=== PATIENT | male | born 1970 | race Hispanic/Latino ===

== ENCOUNTER 2018-09-27 09:53 | Outpatient (CLI) | payer OTHER ==
--- NOTE | 2018-09-27 10:51 | XRay Report ---
Lumbar spine 3 views: History: Pain, recent exam. Findings Normal height of vertebral bodies with decrease in height of L1 through interspaces and L5-S1 interspace. Sclerotic adjacent articular surfaces and peripheral osteophyte suggesting degenerative changes. No fracture. No soft tissue calcification. Incidentally noted left iliac vascular stent. Impression: Degenerative changes lumbar spine being most pronounced at the lumbosacral interspace.
== END 2018-09-27 09:54 | disposition home or self-care (01) ==
LOC: XRAY 09:53
PROVIDERS: ATTEND Internal Medicine
DX: Z02.71 Encounter for disability determination (principal); M47.817 Spondylosis without myelopathy or radiculopathy, lumbosacral region
CPT/HCPCS: 72100

== ENCOUNTER 2020-11-13 17:49 | Emergency (ER) | payer MEDICAID, OTHER ==
--- NOTE | 2020-11-13 20:12 | XRay Report ---
XR shoulder 2+V LT INDICATION: shoulder pain. COMPARISON: No relevant prior imaging study available. FINDINGS: No acute skeletal abnormality. No significant soft tissue abnormality. IMPRESSION: 1. No acute findings. Signer Name: Parish Breaux MD Signed: 11/13/2020 8:07 PM Workstation Name: [id number]
[2020-11-14] MEDS ORDERED: SODIUM CHLORIDE 0.9% 1000 ML 1,000 ML ONE (02:34)
[2020-11-14] MEDS ORDERED: MORPHINE 2 MG/1 ML INJ ONE (02:34)
[2020-11-14] MEDS ORDERED: ACETAMINOPHEN 325 MG TAB ONE (02:35)
[2020-11-14] MEDS ORDERED: MORPHINE 4 MG/1 ML INJ IV ONE (02:55)
[2020-11-14] MEDS ORDERED: SODIUM CHLORIDE 0.9% 1000 ML 1,000 ML IV ONE (02:55)
[2020-11-14] MEDS ORDERED: amLODIPine 5 MG TAB PO ONE (02:56)
[2020-11-14] MEDS ORDERED: ACETAMINOPHEN 325 MG TAB PO ONE ×2 (02:56→05:00)
--- NOTE | 2020-11-14 03:00 | Emergency Department Report ---
ED General Adult HPI - General Chief complaint: Wound/Laceration Stated complaint: LEFT FOOT BIG TOE STUMP PUI?: No Time Seen by Provider: 11/14/20 02:54 Source: patient, EMS ( EMS documentation not available at time of chart dictation ), RN notes reviewed Mode of arrival: Stretcher Limitations: Physical Limitation - History of Present Illness Initial comments: The patient is a 50-year-old gentleman. He is not known to myself previously. He has a history of hypertension, diabetes, umbilical hernia repair, and history of left great toe amputation. The patient presents to the ER today with 3 complaints. His first complaint is nontraumatic left-sided shoulder pain, present for 2 years. The pain is throbbing, increases with palpation and range of motion, and decreases with rest. It does not radiate anywhere. He has followed up with [facility] in the past for this. He does not feel like he is received satisfactory care for his left shoulder pain in the past 2 years. His pain is not new, worsened or different today. His next complaint is a left-sided medial foot wound, present for about a year and a half, which is not painful, and which is not acutely worsened or different today. The patient does not have a loan specialist at this time. His final complaint is abdominal pain, and "it feels like there is a ball in my stomach." He describes a few months of supraumbilical firmness, and pain. He did fall recently. He has not really taken anything [id number] for his pain. He denies headache, neck pain, chest pain, vomiting, diaphoresis, loss of taste and smell, and urinary symptoms. Left shoulder pain increases with palpation and range of motion. Decreases with rest. Abdominal pain increases with palpation. It decreases with rest. It does not radiate anywhere. -: Gradual, week(s), month(s), year(s) Location: abdomen, left (Left shoulder), lower extremity (Left foot) Radiation: non-radiation Quality: other Consistency: other Improves with: other Worsens with: other - Related Data Previous Rx's Medication Instructions Recorded Last Taken Type Acetaminophen [Non-Aspirin Extra 500 mg PO Q6HR PRN #30 tablet 11/14/20 Unknown Rx Strength] Amlodipine Besylate [Norvasc] 5 mg PO QDAY #30 tablet 11/14/20 Unknown Rx Ibuprofen [Motrin] 400 mg PO Q8H PRN #30 tablet 11/14/20 Unknown Rx Allergies Allergy/AdvReac Type Severity Reaction Status Date / Time No Known Allergies Allergy Verified 11/14/20 03:37 ED Review of Systems ROS: Stated complaint: LEFT FOOT BIG TOE STUMP Other details as noted in HPI Constitutional: denies: fever Eyes: denies: eye discharge ENT: denies: epistaxis Respiratory: denies: cough Cardiovascular: denies: chest pain Gastrointestinal: abdominal pain Genitourinary: denies: dysuria Musculoskeletal: arthralgia, myalgia Skin: lesions, other (Chronic discoloration) Neurological: denies: weakness Hematological/Lymphatic: denies: easy bleeding ED Past Medical Hx - Past Medical History Hx Hypertension: Yes Hx Heart Attack/AMI: Yes Hx Diabetes: Yes - Surgical History Additional Surgical History: umbilical repair x4, L toe amputation - Social History Smoking Status: Current Every Day Smoker - Medications Home Medications: Home Medications Medication Instructions Recorded Confirmed Last Taken Type Acetaminophen [Non-Aspirin Extra 500 mg PO Q6HR PRN #30 tablet 11/14/20 Unknown Rx Strength] Amlodipine Besylate [Norvasc] 5 mg PO QDAY #30 tablet 11/14/20 Unknown Rx Ibuprofen [Motrin] 400 mg PO Q8H PRN #30 tablet 11/14/20 Unknown Rx ED Physical Exam - General Limitations: No Limitations General appearance: alert, in no apparent distress, obese - Head Head exam: Present: atraumatic, normocephalic - Eye Eye exam: Present: normal appearance, EOMI. Absent: nystagmus - ENT ENT exam: Present: normal exam, normal orophraynx, mucous membranes moist, normal external ear exam - Neck Neck exam: Present: normal inspection, full ROM. Absent: tenderness, meningismus - Respiratory Respiratory exam: Present: normal lung sounds bilaterally. Absent: respiratory distress, wheezes, rales, rhonchi, stridor, decreased breath sounds - Cardiovascular Cardiovascular Exam: Present: normal rhythm, tachycardia, normal heart sounds. Absent: systolic murmur, diastolic murmur, rubs, gallop - GI/Abdominal GI/Abdominal exam: Present: soft, tenderness (There is induration in the supraumbilical mid abdominal region, without redness, pus, streaking.). Absent: distended, guarding, rebound, rigid, pulsatile mass - Rectal Rectal exam: Present: deferred - Extremities Exam Extremities exam: Present: full ROM (There is full range of motion in the bilateral upper and lower extremities. There is no redness, pus, streaking, warmth or tenderness on the upper extremities.), tenderness (The left shoulder joint is tender, with intact active and passive range of motion), other (2+ pul ses noted in the bilateral upper and lower extremities. There is no palpable cord. negative Homans sign. Muscular compartments are soft. The pelvis is stable.). Absent: normal inspection (Hyperpigmentation noted to the dorsal aspect of the bilateral feet. There is brown nontender nonnecrotic appearing tissue on the medial aspect of the left foot. There is no pus, streaking or tenderness in the bilateral lower extremities.), calf tenderness - Back Exam Back exam: Present: normal inspection. Absent: tenderness, CVA tenderness (R), CVA tenderness (L), paraspinal tenderness, vertebral tenderness - Neurological Exam Neurological exam: Present: alert, oriented X3, other (No facial droop. Tongue midline. Extraocular movements intact bilaterally. Facial sensation intact to light touch in V1, V2, V3 distribution bilaterally. 5 and a 5 strength in 4 extremities. Sensation intact to light touch in 4 extremities.). Absent: motor sensory deficit - Psychiatric Psychiatric exam: Present: normal affect, normal mood - Skin Skin exam: Present: warm. Absent: urticaria, vesicles, petechiae, pallor, abrasion, ecchymosis ED Course Vital Signs 11/13/20 11/14/20 11/14/20 19:32 03:00 03:01 Temperature 98.0 F 98.2 F Pulse Rate 112 H 91 H 97 H Respiratory 18 18 20 Rate Blood Pressure 175/91 146/91 Blood Pressure 146/91 [Left] O2 Sat by Pulse 97 99 Oximetry 11/14/20 11/14/20 11/14/20 03:05 03:10 03:15 Temperature Pulse Rate 100 H Respiratory 18 18 18 Rate Blood Pressure 160/84 Blood Pressure [Left] O2 Sat by Pulse Oximetry 11/14/20 11/14/20 11/14/20 03:31 03:40 03:45 Temperature Pulse Rate 100 H 98 H Respiratory 18 18 15 Rate Blood Pressure 146/91 124/77 Blood Pressure [Left] O2 Sat by Pulse 95 Oximetry 11/14/20 11/14/20 11/14/20 04:01 04:05 04:45 Temperature Pulse Rate 92 H 98 H Respiratory 15 18 15 Rate Blood Pressure 132/85 Blood Pressure [Left] O2 Sat by Pulse 97 98 Oximetry 11/14/20 06:50 Temperature Pulse Rate 90 Respiratory 18 Rate Blood Pressure Blood Pressure 133/65 [Left] O2 Sat by Pulse 98 Oximetry - Reevaluation(s) Reevaluation #1: 11/14/20 03:01 Differential diagnosis, including but not limited to: Chronic left foot wound, left shoulder arthritis, ligamentous injury, abdominal wall hernia, abdominal wall hematoma, intra-abdominal injury Assessment and plan: 50-year-old gentleman, who is initially sleeping comfortably on the stretcher on my examination, with multiple complaints. Complaint #1, left-sided shoulder pain, present for 2 years. Has appropriate range of motion in the left upper extremity, is neurovascularly intact, without redness, pus, streaking, warmth or tenderness, x-ray shows no fracture or dislo cation, examination and history not suggestive of fracture, dislocation, compartment syndrome, or emergent condition. Rest, ice, compression, elevation, outpatient primary care or orthopedics follow-up. Complaint #2, left foot wound. This is chronic for about a year and a half, does not appear to be superinfected, is not acutely decompensated. Local wound care, outpatient wound care follow-up. Place case management consultation to assist the patient with outpatient wound care and psychiatric social worker. Follow-up with outpatient wound clinic. Complaint #3, abdominal pain. Suspect rectus muscle hernia. Treat pain, obtain CT scan abdomen pelvis, and reassess. Have discussed this plan of care with the patient. He is amenable. 11/14/20 05:01 Patient resting comfortably and in no acute distress. He is sleeping on my repeat evaluation. He states he feels improved. I discussed significance of his findings with him. He states he is aware of his pulmonary nodule. He is also wearing an abdominal wall binder. He feels comfortable with plan of discharge. Laboratory studies reviewed and appreciated. Leukocytosis likely stress reaction and/or hemoconcentration. Hemoglobin, hematocrit also suggestive of hemoconcentration. Comprehensive metabolic panel unremarkable with the exceptio n of hyperglycemia. IV fluids and insulin ordered. There is no right upper quadrant pain or tenderness. Patient feels improved after morphine. CT scan abdomen pelvis shows no acute findings. Suitable to follow-up with an outpatient primary care doctor for multiple chronic findings. 11/14/20 05:07 11/14/20 05:08 ED Medical Decision Making - Lab Data Result diagrams: 11/14/20 02:25 Vital Signs 11/13/20 19:32 Temperature 98.0 F Pulse Rate 112 H Respiratory 18 Rate Blood Pressure 175/91 O2 Sat by Pulse 97 Oximetry Vital Signs 11/13/20 11/14/20 11/14/20 19:32 03:00 03:01 Temperature 98.0 F 98.2 F Pulse Rate 112 H 91 H 97 H Respiratory 18 18 20 Rate Blood Pressure 175/91 146/91 Blood Pressure 146/91 [Left] O2 Sat by Pulse 97 99 Oximetry 11/14/20 11/14/20 11/14/20 03:05 03:10 03:15 Temperature Pulse Rate 100 H Respiratory 18 18 18 Rate Blood Pressure 160/84 Blood Pressure [Left] O2 Sat by Pulse Oximetry 11/14/20 11/14/20 11/14/20 03:31 03:45 04:01 Temperature Pulse Rate 100 H 98 H 92 H Respiratory 18 15 15 Rate Blood Pressure 146/91 124/77 132/85 Blood Pressure [Left] O2 Sat by Pulse 95 97 Oximetry 11/14/20 04:45 Temperature Pulse Rate 98 H Respiratory 15 Rate Blood Pressure Blood Pressure [Left] O2 Sat by Pulse 98 Oximetry White blood cell counts, 15.6/17.5, hematocrit 51, platelet count 375 Sodium 136, potassium 4.6, chloride 96.4, CO2 30, anion gap 14, BUN 7, creatinine 0.7, glucose 374, magnesium 1.9, CK 22 Vital Signs 11/13/20 11/14/20 11/14/20 19:32 03:00 03:01 Temperature 98.0 F 98.2 F Pulse Rate 112 H 91 H 97 H Respiratory 18 18 20 Rate Blood Pressure 175/91 146/91 Blood Pressure 146/91 [Left] O2 Sat by Pulse 97 99 Oximetry 11/14/20 11/14/20 11/14/20 03:05 03:10 03:15 Temperature Pulse Rate 100 H Respiratory 18 18 18 Rate Blood Pressure 160/84 Blood Pressure [Left] O2 Sat by Pulse Oximetry 11/14/20 11/14/20 11/14/20 03:31 03:40 03:45 Temperature Pulse Rate 100 H 98 H Respiratory 18 18 15 Rate Blood Pressure 146/91 124/77 Blood Pressure [Left] O2 Sat by Pulse 95 Oximetry 11/14/20 11/14/20 11/14/20 04:01 04:05 04:45 Temperature Pulse Rate 92 H 98 H Respiratory 15 18 15 Rate Blood Pressure 132/85 Blood Pressure [Left] O2 Sat by Pulse 97 98 Oximetry 11/14/20 06:50 Temperature Pulse Rate 90 Respiratory 18 Rate Blood Pressure Blood Pressure 133/65 [Left] O2 Sat by Pulse 98 Oximetry Lab Results 11/14/20 11/14/20 Range/Units 02:25 06:35 WBC 15.6 H (4.5-11.0) K/mm3 RBC 5.77 H (3.65-5.03) M/mm3 Hgb 17.5 H (11.8-15.2) gm/dl Hct 51.1 H (35.5-45.6) % MCV 89 (84-94) fl MCH 30 (28-32) pg MCHC 34 (32-34) % RDW 14.3 (13.2-15.2) % Plt Count 375 (140-440) K/mm3 POC Glucose 202 H (70-105) mg/dL - Radiology Data Radiology results: pending, report reviewed, image reviewed [facility] [address] [place] [address] X Ray Report Signed Patient: TAVO VERA MR#: [id number] : 1970 Acct:[id number] Age/Sex: 50 / M ADM Date: 11/13/20 Loc: ED Attending Dr: Ordering Physician: ED MD LEE Date of Service: 11/13/20 Procedure(s): XR shoulder 2+V LT Accession Number(s): [id number] cc: ED MD LEE Fluoro Time In Minutes: XR shoulder 2+V LT INDICATION: shoulder pain. COMPARISON: No relevant prior imaging study available. FINDINGS: No acute skeletal abnormality. No significant soft tissue abnormality. IMPRESSION: 1. No acute findings. Signer Name: Parish Breaux MD Signed: 11/13/2020 8:07 PM Workstation Name: [id number] Transcribed By: MARLIN Dictated By: Parish Breaux MD Electronically Authenticated By: Parish Breaux MD Signed Date/Time: 11/13/202006 DD/ 06 [facility] [address] [place] [address] Cat Scan Report Signed Patient: TAVO VERA MR#: [id number] : 1970 Acct:[id number] Age/Sex: 50 / M ADM Date: 11/13/20 Loc: ED Attending Dr: Ordering Physician: DANN RIVERA MD Date of Service: 11/14/20 Procedure(s): CT abdomen pelvis w con Accession Number(s): [id number] cc: DANN RIVERA MD CT ABDOMEN AND PELVIS WITH CONTRAST HISTORY: Patient complains of umbilcal abdominal pain / Hematoma. COMPARISON: None. TECHNIQUE: CT images of the abdomen and pelvis were obtained following administration of intravenous contrast. All CT scans at this location are performed using CT dose reduction for ALARA by means of automated exposure control. CONTRAST: 100 ml of intravenous contrast administered. FINDINGS: Lungs/bones: nodule in the right lower lung Abdomen/pelvis: Diffuse fatty infiltration liver. Liver is enlarged. The gallbladder is distended. Spleen, adrenal glands and pancreas appear normal. Extensive atherosclerotic change of aorta and branches. Postsurgical change from prior umbilical appear. Small hernia persists. Bowel loops extending into this region however no definite involvement. No bowel obstruction. IMPRESSION: 1. Right lower lung pulmonary nodule. A PET/CT examination may be helpful for further evaluation. 2. Postoperative change from prior repair. Umbilical hernia persists containing a small amount of fat and mesh material. 3. Gallbladder is distended. No pericholecystic fluid. 4. Fatty infiltration of the liver. Signer Name: Sekou Gtz MD Signed: 11/14/2020 4:43 AM Workstation Name: [id number] Transcribed By: CW Dictated By: ZOFIA GTZ MD Electronically Authenticated By: ZOFIA GTZ MD Signed Date/Time: 11/14/20442 DD/ 0 Critical care attestation.: If time is entered above; I have spent that time in minutes in the direct care of this critically ill patient, excluding procedure time. ED Disposition Clinical Impression: Hypertension, Left shoulder pain, Abdominal pain, Wound of left foot, Hyperglycemia, Pulmonary nodule, Umbilical hernia Disposition: DC-01 TO HOME OR SELFCARE Is pt being admited?: No Does the pt Need Aspirin: No Condition: Good Instructions: Hypertension (ED) Additional Instructions: Do not take metformin medication for the next 2 days, if patient takes this medi cation. Patient may alternate ice packs and heat packs to the left shoulder as needed for physical pain, and may alternate ibuprofen and/or acetaminophen as prescribed for physical pain. Take the blood pressure medication as directed. Please follow-up with a primary care doctor within the next 2 weeks. Patient would likely benefit from physical therapy for the left shoulder. A primary care doctor should be able to set this up. Recommend that patient follow-up with a loan specialist such as Dr. Anne for left foot wound, within the next 2 weeks. Patient may also go to the local wound care center. Please have a primary care doctor contact the medical records department to obtain copies of laboratory studies and CT scan of the abdomen pelvis, to follow-up on nonemergent incidental findings. This includes a nonspecific nodule noted in the patient's lung. Please return to the emergency room right away with new pain, worsened pain, migration of pain, projectile vomiting, change in mental status, confusion, inability to tolerate liquid feeds, new, worsened or different symptoms not present on the initial emergency room evaluation. Dr. Anne is a local wound surgeon. Dr. Anne or general surgeon can also follow you up as an outpatient for chronic abdominal wall hernia. Dr. Hu is a local primary care doctor. Prescriptions: Ibuprofen [Motrin] 400 mg PO Q8H PRN #30 tablet PRN Reason: Pain Acetaminophen [Non-Aspirin Extra Strength] 500 mg PO Q6HR PRN #30 tablet PRN Reason: Pain , Severe (7-10) Amlodipine Besylate [Norvasc] 5 mg PO QDAY #30 tablet Referrals: GUTIERREZ HU MD [Staff Physician] - 3-5 Days VANNA ANNE MD [Staff Physician] - 3-5 Days [facility] [Outside] - 3-5 Days
[2020-11-14] MEDS ORDERED: SODIUM CHLORIDE 0.9% 1000 ML 1,000 ML IV SCH (04:30)
--- NOTE | 2020-11-14 04:47 | Cat Scan Report ---
CT ABDOMEN AND PELVIS WITH CONTRAST HISTORY: Patient complains of umbilcal abdominal pain / Hematoma. COMPARISON: None. TECHNIQUE: CT images of the abdomen and pelvis were obtained following administration of intravenous contrast. All CT scans at this location are performed using CT dose reduction for ALARA by means of automated exposure control. CONTRAST: 100 ml of intravenous contrast administered. FINDINGS: Lungs/bones: nodule in the right lower lung Abdomen/pelvis: Diffuse fatty infiltration liver. Liver is enlarged. The gallbladder is distended. S pleen, adrenal glands and pancreas appear normal. Extensive atherosclerotic change of aorta and branc hes. Postsurgical change from prior umbilical appear. Small hernia persists. Bowel loops extending in to this region however no definite involvement. No bowel obstruction. IMPRESSION: 1. Right lower lung pulmonary nodule. A PET/CT examination may be helpful for further evaluation. 2. Postoperative change from prior repair. Umbilical hernia persists containing a small amount of fat and mesh material. 3. Gallbladder is distended. No pericholecystic fluid. 4. Fatty infiltration of the liver. Signer Name: Sekou Gtz MD Signed: 11/14/2020 4:43 AM Workstation Name: [id number]
[2020-11-14] MEDS ORDERED: INSULIN REGULAR, HUMAN 100 UNITS/1 ML IV ONE (04:59)
[2020-11-14] MEDS ORDERED: MORPHINE 2 MG/1 ML INJ IV ONE (05:00)
[2020-11-14] MEDS ORDERED: INSULIN REGULAR, HUMAN 100 UNITS/1 ML ONE (05:11)
[2020-11-14 07:06] VITALS: BP 133/65
[2020-11-14 10:14] LABS: Hematocrit 51.1 % (35.5-45.6); Hemoglobin 17.5 gm/dl (11.8-15.2); Mean Corpuscular Volume 89 fl (84-94); Red Blood Count 5.77 M/mm3 (3.65-5.03)
[2020-11-14 10:15] LABS: Mean Corpuscular HGB Conc 34 % (32-34); Platelet Count 375 K/mm3 (140-440); Red Cell Distribution Width 14.3 % (13.2-15.2)
== END 2020-11-14 06:50 | disposition home or self-care (01) ==
LOC: ED 17:49
DX: S91.302A Unspecified open wound, left foot, initial encounter (principal); M25.512 Pain in left shoulder; I10 Essential (primary) hypertension; K42.9 Umbilical hernia without obstruction or gangrene; E11.65 Type 2 diabetes mellitus with hyperglycemia; F17.200 Nicotine dependence, unspecified, uncomplicated; R91.1 Solitary pulmonary nodule; Z79.899 Other long term (current) drug therapy; X58.XXXA Exposure to other specified factors, initial encounter; Y93.89 Activity, other specified; Y92.89 Other specified places as the place of occurrence of the external cause; Y99.8 Other external cause status
CPT/HCPCS: 36415; 73030; 74177; 82962; 85027; 96361; 96374; 99285; J2270; J7030; Q9967; J1815